=== PATIENT | female | born 1990 ===

== ENCOUNTER 2018-08-07 17:33 | Observation (INO) | payer OTHER ==
[2018-08-07] MEDS ORDERED: Sodium Chloride 0.9% 1,000 ML IV STA (17:54)
--- NOTE | 2018-08-07 17:57 | ED PDOC ---
HPI: General Adult Time Seen by Provider: 08/07/18 17:42 Chief Complaint (Nursing): Back Pain Chief Complaint (Provider): Back and abd pain History Per: Patient History/Exam Limitations: no limitations Onset/Duration Of Symptoms: Days (yesterday) Additional Complaint(s): Pt. back pain all over yesterday. Today pain continues and all over abd. Nausea, no vomit. 1 nonbloody diarrha. No weakness, numbness, tingles. No incontinence or constipation. No dysuria. Has chronic back pain, but states this is different. No new food or drinks. No etoh or drugs. No injury. Past Medical History Reviewed: Nursing Documentation, Vital Signs Vital Signs: Last Vital Signs Temp 98.2 F 08/07/18 17:37 Pulse 70 08/07/18 17:37 Resp 18 08/07/18 17:37 BP 114/66 08/07/18 17:37 Pulse Ox 99 08/07/18 17:37 - Medical History PMH: Back Problems Other PMH: shingles - Surgical History Surgical History: No Surg Hx - Family History Family History: States: Unknown Family Hx - Allergies Allergies/Adverse Reactions: Allergies Allergy/AdvReac Type Severity Reaction Status Date / Time No Known Allergies Allergy Verified 08/07/18 17:37 Review of Systems ROS Statement: Except As Marked, All Systems Reviewed And Found Negative Gastrointestinal: Positive for: Nausea, Abdominal Pain Musculoskeletal: Positive for: Back Pain Physical Exam - Reviewed Nursing Documentation Reviewed: Yes Vital Signs Reviewed: Yes - Physical Exam Appears: Positive for: Non-toxic, No Acute Distress Head Exam: Positive for: ATRAUMATIC, NORMAL INSPECTION, NORMOCEPHALIC Skin: Positive for: Normal Color, Warm, DRY Eye Exam: Positive for: EOMI, Normal appearance, PERRL ENT: Positive for: Normal ENT Inspection Neck: Positive for: Normal, Painless ROM Cardiovascular/Chest: Positive for: Regular Rate, Rhythm Respiratory: Positive for: CNT, Normal Breath Sounds Gastrointestinal/Abdominal: Positive for: Soft, Tenderness (diffuse) Back: Positive for: Other (diffuse mild) Extremity: Positive for: Normal ROM. Negative for: Tenderness Neurologic/Psych: Positive for: Alert, Oriented - Laboratory Results Result Diagrams: 08/07/18 18:37 08/07/18 18:37 Interpretation Of Abn Labs: 3.2 k, 12.6 wbc - ECG O2 Sat by Pulse Oximetry: 99 Pulse Ox Interpretation: Normal - CT Scan/US ct Other Rad Studies (CT/US): Read By Radiologist Other Rad Interpretation: gi varices, mild - Progress ED Course And Treament: 2138: Stable. Spoke with Dr. Shabazz. Will admit. Obs for intractable back pain. No incontinence, constipation. Disposition - Clinical Impression Clinical Impression: Back pain, Abdominal pain - Patient ED Disposition Is Patient to be Admitted: Yes Counseled Patient/Family Regarding: Studies Performed, Diagnosis - Disposition Disposition Time: 21:38 Condition: FAIR - Pt Status Changed To: Hospital Disposition Of: Observation - POA Present On Arrival: None
[2018-08-07 18:41] LABS: BASO % 0.4 % (0.0-2.0); EOS # 0.1 K/uL (0.0-0.7); EOS % 1.1 % (0.0-4.0); HEMOGLOBIN 12.8 g/dL (12.0-16.0); LYMPH # 1.4 K/uL (1.0-4.3); LYMPH % 11.4 % (20.0-40.0); MEAN CELL VOLUME 88.7 fl (81.0-99.0); MEAN CORPUSCULAR HEMOGLOBIN 29.9 pg (27.0-31.0); MEAN CORPUSCULAR HGB CONC 33.7 g/dL (33.0-37.0); MEAN PLATELET VOLUME 9.2 fl (7.2-11.7); MONO # 0.8 K/uL (0.0-0.8); MONO % 6.2 % (0.0-10.0); NEUT # 10.1 K/uL (1.8-7.0); NEUT % 80.9 % (50.0-75.0); RBC 4.27 Mil/uL (3.80-5.20); RED CELL DISTRIBUTION WIDTH 12.7 % (11.5-14.5); WHITE BLOOD COUNT 12.6 K/uL (4.8-10.8)
[2018-08-07 18:53] LABS: ALB/GLOB RATIO 1.3 (1.0-2.1); ALBUMIN 4.2 g/dL (3.5-5.0); ALT/SGPT 33 U/L (9-52); AST/SGOT 43 U/L (14-36); BLOOD UREA NITROGEN 18 mg/dl (7-17); GFR NON-AFRICAN AMERICAN > 60; LIPASE 23 U/L (23-300)
[2018-08-07] MEDS ORDERED: Iohexol 300 100 ML IJ ONE (19:04)
[2018-08-07] MEDS ORDERED: Sodium Chloride 0.9% 50 ML IV ONE (19:04)
[2018-08-07] MEDS ORDERED: Morphine 4 MG/ML VIAL IV ONE (19:52)
[2018-08-07] MEDS ORDERED: Lidocaine 5% Patch TD STA (19:52)
[2018-08-07] MEDS ORDERED: Potassium Chloride 20 mEq ER Tab PO STA (19:56)
[2018-08-07] MEDS ORDERED: Lidocaine 5% Patch TD ONE (19:57)
[2018-08-07] MEDS ORDERED: Morphine 4 MG/ML VIAL ONE (19:58)
[2018-08-07] MEDS ORDERED: diaZEpam 10 mg/2 ml Inj IVP STA (20:11)
[2018-08-07] MEDS ORDERED: Potassium Chloride 20 mEq ER Tab PO ONE (20:40)
--- NOTE | 2018-08-07 22:04 | CP.PCM.HP ---
History of Present Illness - History of Present Illness History of Present Illness: CC: back pain HPI: 28 YO Female with no sig PMHx presented to [facility] ED for back pain. Pt states that she has chronic back pain, but it worsened in the past two days, today becoming so severe that patient was not able to move and had to call the ambulance. Pt has tried OTC meds PO for pain without relief. Pain is rated as a 10/10 in intensity, located in the Mid-back, there is radiation of the pain to the upper abdomen above the umbilicus, pain is described as sharp, intense and persistent. Endorsing nausea with pain and 1x episode of loose BM (NB) earlier today. Not associated with any fevers or chills. 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 No hx of trauma (back), has had back pain on/off for the past three yrs. Pain improved with morphine in the ED. PMD: none PMHx: shingles in the past Surghx: denies SHx: denies ETOH, smoking and endorses marijuana use FHx: fibromylagia and bipolar disease (mother) Allergies: NKDA Meds: Aleve Present on Admission - Present on Admission Any Indicators Present on Admission: No Review of Systems - Constitutional Constitutional: absent: Chills, Fever - Cardiovascular Cardiovascular: absent: Chest Pain, Dyspnea, Palpitations - Respiratory Respiratory: absent: Cough, Dyspnea - Gastrointestinal Gastrointestinal: Abdominal Pain - Genitourinary Genitourinary: absent: Change in Urinary Stream, Dysuria, Flank Pain - Musculoskeletal Musculoskeletal: Back Pain. absent: Muscle Weakness - Neurological Neurological: absent: Dizziness, Headaches Past Patient History - Past Social History Smoking Status: Never Smoked Alcohol: None Drugs: Cannabis - PSYCHIATRIC Hx Substance Use: No Meds Allergies/Adverse Reactions: Allergies Allergy/AdvReac Type Severity Reaction Status Date / Time No Known Allergies Allergy Verified 08/07/18 17:37 Physical Exam - Constitutional Appears: Other (anxious and tearful ) - Eye Exam Eye Exam: Normal appearance - Respiratory Exam Respiratory Exam: Clear to Auscultation Bilateral, NORMAL BREATHING PATTERN. absent: Wheezes - Cardiovascular Exam Cardiovascular Exam: REGULAR RHYTHM, +S1, +S2 - GI/Abdominal Exam GI & Abdominal Exam: Normal Bowel Sounds, Soft. absent: Distended, Guarding, Tenderness - Extremities Exam Extremities exam: Positive for: normal inspection. Negative for: calf tenderness, pedal edema Additional comments: straight leg test neg b/l - Back Exam Back exam: paraspinal tenderness (thoracic area ), vertebral tenderness (mid-low thoracic area, approx T8-L2). absent: muscle spasm, rash noted - Neurological Exam Neurological exam: Alert, Oriented x3 - Psychiatric Exam Psychiatric exam: Anxious - Skin Skin Exam: Intact, Normal Color Results - Vital Signs Recent Vital Signs: Last Vital Signs Temp 98.2 F 08/07/18 17:37 Pulse 70 08/07/18 17:37 Resp 18 08/07/18 17:37 BP 114/66 08/07/18 17:37 Pulse Ox 99 08/07/18 21:38 - Labs Result Diagrams: 08/07/18 18:37 08/07/18 18:37 Labs: Laboratory Results - last 24 hr 08/07/18 08/07/18 18:37 18:37 WBC 12.6 H RBC 4.27 Hgb 12.8 Hct 37.9 MCV 88.7 MCH 29.9 MCHC 33.7 RDW 12.7 Plt Count 269 MPV 9.2 Neut % (Auto) 80.9 H Lymph % (Auto) 11.4 L Quay % (Auto) 6.2 Eos % (Auto) 1.1 Baso % (Auto) 0.4 Neut # (Auto) 10.1 H Lymph # (Auto) 1.4 Quay # (Auto) 0.8 Eos # (Auto) 0.1 Baso # (Auto) 0.0 Sodium 139 Potassium 3.2 L Chloride 101 Carbon Dioxide 27 Anion Gap 14 BUN 18 H Creatinine 0.6 L Est GFR ( Amer) > 60 Est GFR (Non-Af Amer) > 60 Random Glucose 105 Calcium 9.0 Total Bilirubin 0.8 AST 43 H ALT 33 Alkaline Phosphatase 78 Total Protein 7.3 Albumin 4.2 Globulin 3.1 Albumin/Globulin Ratio 1.3 Lipase 23 Assessment & Plan - Assessment and Plan (Free Text) Assessment: Assessment/Plan: 28 YO Female with no sig PMHx is admitted for intractable back pain and hypokalemia. Intractable back pain -acute on chronic -likely 2/2 to muscle strain vs disc disease -pain management, flexeril -CT abd and pelvis no acute findings -consider MRI of thoracic and lumbar in AM if pain persists Leukocytosis -likely 2/2 to acute pain and stress -afebrile -repeat AM lab Hypokalemia -replace prn -repeat labs in AM DVT prophlx -Lovenox SC
[2018-08-08 06:35] LABS: BASO % 0.3 % (0.0-2.0); EOS # 0.1 K/uL (0.0-0.7); EOS % 1.5 % (0.0-4.0); HEMOGLOBIN 11.8 g/dL (12.0-16.0); LYMPH # 1.6 K/uL (1.0-4.3); LYMPH % 22.8 % (20.0-40.0); MEAN CELL VOLUME 91.2 fl (81.0-99.0); MEAN CORPUSCULAR HEMOGLOBIN 30.1 pg (27.0-31.0); MEAN PLATELET VOLUME 9.2 fl (7.2-11.7); MONO # 0.5 K/uL (0.0-0.8); MONO % 7.7 % (0.0-10.0); NEUT # 4.8 K/uL (1.8-7.0); NEUT % 67.7 % (50.0-75.0); RBC 3.93 Mil/uL (3.80-5.20); RED CELL DISTRIBUTION WIDTH 12.6 % (11.5-14.5); WHITE BLOOD COUNT 7.2 K/uL (4.8-10.8)
[2018-08-08 07:11] LABS: BLOOD UREA NITROGEN 11 mg/dl (7-17); CALCIUM 8.3 mg/dL (8.4-10.2); GFR NON-AFRICAN AMERICAN > 60
[2018-08-08] MEDS ORDERED: Enoxaparin 40 mg Syringe SC SCH (09:00)
[2018-08-08] MEDS: Pantoprazole 40 mg EC Tab PO SCH (09:33)
[2018-08-08] MEDS: Lidocaine 5% Patch TD SCH (10:27)
--- NOTE | 2018-08-08 11:16 | CP.PCM.DIS ---
<Vincent Marie - Last Filed: 08/08/18 13:05> Provider - Provider Date of Admission: 08/07/18 21:38 Attending physician: Isidro Shabazz MD Consults: 08/08/18 05:45 Social Work Referral Routine Comment: Smokes Marijuana - Last use Wednesday (08/05/2018) Physician Instructions: Reason For Exam: Unhealthy Lifestyle Time Spent in preparation of Discharge (in minutes): 30 Hospital Course - Lab Results Lab Results: Most Recent Lab Values WBC 7.2 K/uL (4.8-10.8) 08/08/18 06:15 RBC 3.93 Mil/uL (3.80-5.20) 08/08/18 06:15 Hgb 11.8 g/dL (12.0-16.0) L 08/08/18 06:15 Hct 35.9 % (34.0-47.0) 08/08/18 06:15 MCV 91.2 fl (81.0-99.0) D 08/08/18 06:15 MCH 30.1 pg (27.0-31.0) 08/08/18 06:15 MCHC 33.0 g/dL (33.0-37.0) 08/08/18 06:15 RDW 12.6 % (11.5-14.5) 08/08/18 06:15 Plt Count 248 K/uL (130-400) 08/08/18 06:15 MPV 9.2 fl (7.2-11.7) 08/08/18 06:15 Neut % (Auto) 67.7 % (50.0-75.0) 08/08/18 06:15 Lymph % (Auto) 22.8 % (20.0-40.0) 08/08/18 06:15 Pine % (Auto) 7.7 % (0.0-10.0) 08/08/18 06:15 Eos % (Auto) 1.5 % (0.0-4.0) 08/08/18 06:15 Baso % (Auto) 0.3 % (0.0-2.0) 08/08/18 06:15 Neut # (Auto) 4.8 K/uL (1.8-7.0) 08/08/18 06:15 Lymph # (Auto) 1.6 K/uL (1.0-4.3) 08/08/18 06:15 Pine # (Auto) 0.5 K/uL (0.0-0.8) 08/08/18 06:15 Eos # (Auto) 0.1 K/uL (0.0-0.7) 08/08/18 06:15 Baso # (Auto) 0.0 K/uL (0.0-0.2) 08/08/18 06:15 Sodium 136 mmol/l (132-148) 08/08/18 06:15 Potassium 3.8 MMOL/L (3.6-5.0) 08/08/18 06:15 Chloride 107 mmol/L (98-107) 08/08/18 06:15 Carbon Dioxide 24 mmol/L (22-30) 08/08/18 06:15 Anion Gap 9 (10-20) L 08/08/18 06:15 BUN 11 mg/dl (7-17) 08/08/18 06:15 Creatinine 0.5 mg/dl (0.7-1.2) L 08/08/18 06:15 Est GFR ( Amer) > 60 08/08/18 06:15 Est GFR (Non-Af Amer) > 60 08/08/18 06:15 Random Glucose 94 mg/dL (65-105) 08/08/18 06:15 Calcium 8.3 mg/dL (8.4-10.2) L 08/08/18 06:15 Total Bilirubin 0.8 mg/dl (0.2-1.3) 08/07/18 18:37 AST 43 U/L (14-36) H 08/07/18 18:37 ALT 33 U/L (9-52) 08/07/18 18:37 Alkaline Phosphatase 78 U/L (38-126) 08/07/18 18:37 Total Protein 7.3 G/DL (6.3-8.2) 08/07/18 18:37 Albumin 4.2 g/dL (3.5-5.0) 08/07/18 18:37 Globulin 3.1 gm/dL (2.2-3.9) 08/07/18 18:37 Albumin/Globulin Ratio 1.3 (1.0-2.1) 08/07/18 18:37 Lipase 23 U/L (23-300) 08/07/18 18:37 - Hospital Course Hospital Course: 28 YO Female with no significant PMH is admitted for intractable back pain and hypokalemia. Patient received pain meds (Tylenol, Toradol and Lidoderm patchs) and muscle relaxent (Flexeril). Patient had CT abdomen and pelvis didn't show any bone anomalies. Patient seen and evaluated by PT. During her hospital course; Patient didn't have any acute events or distress. Patient discharged home today. Will follow up with outpatient PT. Patient will follow up with outpatient [facility]. Patient to apply on Winter care. Assessment: 28 Y/O Female patient with no significant PMH is admitted for intractable back pain and hypokalemia. Plan: Intractable back pain -Acute on chronic -Likely 2/2 to muscle strain. -C/W Pain management (Tylenol, Naproxen and Lidoderm patch), flexeril for muscle relaxation -CT abd and pelvis no acute findings -PT evaluation: Discharge-Not a candidate for skilled PT services. -F/U with outpatient neighborhood clinic. -Referral to F/U with outpatient PT. -F/U with winter office in the Main floor of [facility] to apply for winter care. Hypokalemia -Normalized -Last K: 3.8 Discharge Exam - Head Exam Head Exam: ATRAUMATIC, NORMAL INSPECTION, NORMOCEPHALIC - Eye Exam Eye Exam: EOMI, Normal appearance, PERRL Pupil Exam: NORMAL ACCOMODATION, PERRL - ENT Exam ENT Exam: Mucous Membranes Moist - Neck Exam Neck exam: Full Rom, Normal Inspection - Respiratory Exam Respiratory Exam: Clear to PA & Lateral, NORMAL BREATHING PATTERN, UNREMARKABLE - Cardiovascular Exam Cardiovascular Exam: REGULAR RHYTHM, +S1, +S2 - GI/Abdominal Exam GI & Abdominal Exam: Normal Bowel Sounds, Unremarkable - Back Exam Back exam: NORMAL INSPECTION Additional comments: Lower thoracic paraspinal mild tenderness to palpation. - Neurological Exam Neurological exam: Alert, Oriented x3 Additional comments: Sensations (fine and protective) are intact b/l. Motor power intact 5/5 to all groups. Straight leg raise up test negative b/l. - Psychiatric Exam Psychiatric exam: Normal Affect, Normal Mood - Skin Skin Exam: Dry, Intact, Normal Color, Warm Discharge Plan - Discharge Medications Prescriptions: Cyclobenzaprine [Flexeril] 5 mg PO Q8 10 Days #30 tab Lidocaine 5% [Lidoderm] 2 ea TD DAILY 10 Days #10 patch Naproxen [Naprosyn] 500 mg PO BID 10 Days #20 tablet Pantoprazole [Protonix EC Tab] 40 mg PO DAILY 14 Days #14 ect - Follow Up Plan Condition: FAIR Disposition: HOME/ ROUTINE Instructions: Acute Abdominal Pain (DC), Back Pain (GEN) Additional Instructions: Apply for [facility]: Office is in the main floor of [facility] Call and make an appointment with the [facility]-Phone no: [phone] follow up with primary MD 1 week Referrals: [facility] [Outside] <JamesConnieMindygreta Clarke - Last Filed: 08/08/18 18:14> Provider - Provider Date of Admission: 08/07/18 21:38 Attending physician: Isidro Shabazz MD Consults: 08/08/18 05:45 Social Work Referral Routine Comment: Smokes Marijuana - Last use Wednesday (08/05/2018) Physician Instructions: Reason For Exam: Unhealthy Lifestyle Hospital Course - Lab Results Lab Results: Most Recent Lab Values WBC 7.2 K/uL (4.8-10.8) 08/08/18 06:15 RBC 3.93 Mil/uL (3.80-5.20) 08/08/18 06:15 Hgb 11.8 g/dL (12.0-16.0) L 08/08/18 06:15 Hct 35.9 % (34.0-47.0) 08/08/18 06:15 MCV 91.2 fl (81.0-99.0) D 08/08/18 06:15 MCH 30.1 pg (27.0-31.0) 08/08/18 06:15 MCHC 33.0 g/dL (33.0-37.0) 08/08/18 06:15 RDW 12.6 % (11.5-14.5) 08/08/18 06:15 Plt Count 248 K/uL (130-400) 08/08/18 06:15 MPV 9.2 fl (7.2-11.7) 08/08/18 06:15 Neut % (Auto) 67.7 % (50.0-75.0) 08/08/18 06:15 Lymph % (Auto) 22.8 % (20.0-40.0) 08/08/18 06:15 Pine % (Auto) 7.7 % (0.0-10.0) 08/08/18 06:15 Eos % (Auto) 1.5 % (0.0-4.0) 08/08/18 06:15 Baso % (Auto) 0.3 % (0.0-2.0) 08/08/18 06:15 Neut # (Auto) 4.8 K/uL (1.8-7.0) 08/08/18 06:15 Lymph # (Auto) 1.6 K/uL (1.0-4.3) 08/08/18 06:15 Pine # (Auto) 0.5 K/uL (0.0-0.8) 08/08/18 06:15 Eos # (Auto) 0.1 K/uL (0.0-0.7) 08/08/18 06:15 Baso # (Auto) 0.0 K/uL (0.0-0.2) 08/08/18 06:15 Sodium 136 mmol/l (132-148) 08/08/18 06:15 Potassium 3.8 MMOL/L (3.6-5.0) 08/08/18 06:15 Chloride 107 mmol/L (98-107) 08/08/18 06:15 Carbon Dioxide 24 mmol/L (22-30) 08/08/18 06:15 Anion Gap 9 (10-20) L 08/08/18 06:15 BUN 11 mg/dl (7-17) 08/08/18 06:15 Creatinine 0.5 mg/dl (0.7-1.2) L 08/08/18 06:15 Est GFR ( Amer) > 60 08/08/18 06:15 Est GFR (Non-Af Amer) > 60 08/08/18 06:15 Random Glucose 94 mg/dL (65-105) 08/08/18 06:15 Calcium 8.3 mg/dL (8.4-10.2) L 08/08/18 06:15 Total Bilirubin 0.8 mg/dl (0.2-1.3) 08/07/18 18:37 AST 43 U/L (14-36) H 08/07/18 18:37 ALT 33 U/L (9-52) 08/07/18 18:37 Alkaline Phosphatase 78 U/L (38-126) 08/07/18 18:37 Total Protein 7.3 G/DL (6.3-8.2) 08/07/18 18:37 Albumin 4.2 g/dL (3.5-5.0) 08/07/18 18:37 Globulin 3.1 gm/dL (2.2-3.9) 08/07/18 18:37 Albumin/Globulin Ratio 1.3 (1.0-2.1) 08/07/18 18:37 Lipase 23 U/L (23-300) 08/07/18 18:37 Attending/Attestation - Attestation I have personally seen and examined this patient.: Yes I have fully participated in the care of the patient.: Yes I have reviewed all pertinent clinical information, including history, physical exam and plan: Yes Notes (Text): Back Pain , mid and lower back pain likely musculoskeletal pain improved -Pt had no neuro deficit , no saddle anesthesia, no urinary retention nor incontinence, negative straight leg raising - her pain improved with pain meds, muscle relaxant and with the dose of Valium and Decadron. -PT consulted- rec Outpt Physical therapy. - plan to d/c pt home and ff up as outpt in the clinic for further eval and mgt of back pain and HYGIENE COORDINATOR appt to ff up on small adnexal cyst. Discharge cancelled after Radiologist called informing us of discordant CT of the abdomen reading compared to the night Radiologist reading. - noted was " extensive varicesb in distal esophagus, and poss Thrombosis of the IVC and pelvic venous system". Discussed case with Dr Holbrook - Doppler US of the IVC and LE to r/o DVT. - pt has no calf tenderness - not on contraceptive pills - FH : her uncle was recently dx to have DVT and is in [place]
--- NOTE | 2018-08-08 14:07 | CT ---
Date of service: 08/07/2018 PROCEDURE: CT Abdomen and Pelvis with contrast HISTORY: pain COMPARISON: None. TECHNIQUE: Following the intravenous administration of iodinated contrast material, a CT examination of the abdomen and pelvis performed from the domes of the diaphragms to the symphysis pubis with reformatted datasets provided in axial, sagittal and coronal planes. Oral contrast was not administered as per referring physician request. Coronal and sagittal reformats were generated. Contrast dose: Omnipaque 300, 90 cc. Radiation dose: Total exam DLP = 546.39 mGy-cm. This CT exam was performed using one or more of the following dose reduction techniques: Automated exposure control, adjustment of the mA and/or kV according to patient size, and/or use of iterative reconstruction technique. FINDINGS: LOWER THORAX: Unremarkable. LIVER: Nonspecific periportal edema identified. No gross lesion or ductal dilatation. GALLBLADDER AND BILE DUCTS: Unremarkable. PANCREAS: Unremarkable. No gross lesion or ductal dilatation. SPLEEN: Unremarkable. ADRENALS: Unremarkable. No mass. KIDNEYS AND URETERS: Unremarkable. No hydronephrosis. No solid mass. VASCULATURE: Nonaneurysmal abdominal aortic calcific atherosclerotic changes are identified. There is azygos continuation of the inferior vena cava and the chaz azygous vein in the chest appears prominent. Further, extensive varices are identified at the distal esophagus and medial bilateral renal fossae without cirrhotic hepatic pattern appreciated. Further, although there is good enhancement of the splenic and portal venous system, there is little or no enhancement identified in the inferior vena cava including the iliac pelvic system in the bilateral common femoral veins. This raises the question of potential thrombosis of the inferior vena cava and pelvic venous system with azygos and chaz azygous continuation. BOWEL: Stomach is distended with retained fluid moderately. No bowel obstruction is identified. No definitive mural thickening is evident. Limited mesenteric hazy density seen in the pelvis bilaterally, inferiorly which is of uncertain origin. The lack of oral contrast limits evaluation of the bowel but no gross mural thickening is evident at this time. APPENDIX: Normal appendix. PERITONEUM: Nonspecific hazy peritoneal fatty glass changes are seen in the bilateral inferior pelvis. No ascites or free intra peritoneal gas collection. LYMPH NODES: No significant lymphadenopathy. BLADDER: Unremarkable. REPRODUCTIVE: 2.1 cm cyst left adnexal compartment. BONES: No acute fracture. OTHER FINDINGS: None. IMPRESSION: 1. 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 Multiple varices are identified in the upper abdomen including bilateral medial perirenal spaces and left side of the esophagus. Follow-up ultrasonography of the inferior vena cava and bilateral lower extremities is advised. 2. Nonspecific ground-glass changes in the inferior mesenteric bilaterally of uncertain origin. No gross mural thickening in the local bowel segments. No ascites or free air. 3. 2.1 cm left adnexal cyst. Discordant preliminary report from [facility] (inferior vena cava, pelvic venous system and bilateral lower extremity venous systems). Findings reviewed and discussed with AIDEN Pal with written down and read back verification 08/08/2018 2 o'clock p.m..
--- NOTE | 2018-08-08 18:47 | US ---
Date of service: 08/08/2018 PROCEDURE: Bilateral lower extremity venous duplex Doppler. HISTORY: r/o DVT COMPARISON: None available. TECHNIQUE: Bilateral common femoral, superficial femoral, popliteal and posterior tibial veins were evaluated. Flow was assessed with color Doppler, compressibility, assessment of phasic flow and augmentation response. FINDINGS: COMMON FEMORAL VEIN: Right CFV: Unremarkable. Left CFV: Unremarkable. SUPERFICIAL FEMORAL VEIN: Right SFV: Unremarkable. Left SFV: Unremarkable. POPLITEAL VEIN: Right Popliteal: Unremarkable. Left Popliteal: Unremarkable. POSTERIOR TIBIAL VEIN: Right PTV: Unremarkable. Left PTV: Unremarkable. OTHER FINDINGS: None. IMPRESSION: No evidence of deep venous thrombosis.
--- NOTE | 2018-08-09 00:57 | CP.PCM.PCO ---
Physician Communication Note - Physician Communication Note Physician Communication Note: US report reviewed.
[2018-08-09] MEDS: Enoxaparin 80 mg Syringe SC SCH ×2 (01:00→14:08)
[2018-08-09] MEDS: Lidocaine 5% Patch TD SCH (09:01)
[2018-08-09] MEDS: Pantoprazole 40 mg EC Tab PO SCH (09:02)
[2018-08-09 09:39] LABS: INR 1.1; PROTHROMBIN TIME 12.2 Seconds (9.8-13.1)
[2018-08-09 09:42] LABS: PARTIAL THROMBOPLASTIN TIME 38.2 Seconds (25.6-37.1)
--- NOTE | 2018-08-09 10:37 | CP.PCM.PN ---
Subjective - Date & Time of Evaluation Date of Evaluation: 08/09/18 Time of Evaluation: 10:09 - Subjective Subjective: 28 Y/O Female patient seen and evaluated at the bedside for back pain. Patient was sleeping comfortably in her bed and NAD. Patient states that She didn't have overnight pain but she had some back soreness. She denies any overnight acute events. She denies any overnight F/N/V/C/CP or SOB. Objective - Vital Signs/Intake and Output Vital Signs (last 24 hours): Temp Pulse Resp BP Pulse Ox 97.8 F 68 20 101/66 97 08/09/18 08:21 08/09/18 08:21 08/09/18 08:21 08/09/18 08:21 08/09/18 08:21 - Medications Medications: Current Medications Acetaminophen (Tylenol 325mg Tab) 650 mg PO Q6 PRN PRN Reason: Pain, Mild (1-3) Last Admin: 08/08/18 19:46 Dose: 650 mg Cyclobenzaprine HCl (Flexeril) 5 mg PO Q8 [facility]OLY Last Admin: 08/09/18 09:01 Dose: 5 mg Enoxaparin Sodium (Lovenox) 70 mg SC Q12H YOLY; Protocol Last Admin: 08/09/18 01:00 Dose: 70 mg Ketorolac Tromethamine (Toradol) 15 mg IVP Q6 PRN PRN Reason: Pain, moderate (4-7) Last Admin: 08/08/18 21:34 Dose: 15 mg Lidocaine (Lidoderm) 2 ea TD DAILY [facility] Last Admin: 08/09/18 09:01 Dose: 2 ea Ondansetron HCl (Zofran Tab) 4 mg PO Q6 PRN PRN Reason: Nausea/Vomiting Pantoprazole Sodium (Protonix Ec Tab) 40 mg PO DAILY [facility] Last Admin: 08/09/18 09:02 Dose: 40 mg - Labs Labs: 08/08/18 06:15 08/08/18 06:15 PT 12.2 Seconds (9.8-13.1) 08/09/18 09:20 INR 1.1 08/09/18 09:20 APTT 38.2 Seconds (25.6-37.1) H 08/09/18 09:20 - Constitutional Appears: Non-toxic, No Acute Distress - Head Exam Head Exam: ATRAUMATIC, NORMOCEPHALIC - Eye Exam Eye Exam: EOMI, Normal appearance, PERRL Pupil Exam: NORMAL ACCOMODATION, PERRL - ENT Exam ENT Exam: Mucous Membranes Moist, Normal Exam - Neck Exam Neck Exam: Full ROM, Normal Inspection - Respiratory Exam Respiratory Exam: Clear to Ausculation Bilateral, NORMAL BREATHING PATTERN - Cardiovascular Exam Cardiovascular Exam: REGULAR RHYTHM, +S1, +S2 - GI/Abdominal Exam GI & Abdominal Exam: Soft, Normal Bowel Sounds - Neurological Exam Neurological Exam: Alert, Awake, Oriented x3 Neuro motor strength exam: Left Upper Extremity: 5, Right Upper Extremity: 5, Le ft Lower Extremity: 5, Right Lower Extremity: 5 Additional comments: straight leg test neg b/l - Psychiatric Exam Psychiatric exam: Normal Affect, Normal Mood - Skin Skin Exam: Dry, Intact, Normal Color, Warm Assessment and Plan - Assessment and Plan (Free Text) Assessment: 28 Y/O Female with no sig PMHx is admitted for intractable back pain probably 2ry to IVC thrombosis. Plan: Intractable back pain probably 2ry to IVC thrombosis -Acute on chronic -C/W pain management, flexeril -CT abd and pelvis Initially IVC, iliac, azygos and hemiazygos thrombosis with left lower esophagus varices, left adenxal cyst. Advised to do U/S IVC, Iliacs and B/l LE. -Aortic U/S: No flow seen from proximal IVC suspicious for thrombosis, Consider further imaging, Mid IVC is not visualized. -B/L LE Venous duplex: No evidence of DVT. -Ordered IVC venography. -Patient Referred to IR for potential thrombolysis -Lovenox 70 mg Q12. Leukocytosis -likely 2/2 to acute pain and stress -afebrile -WBCs: Hypokalemia -replace prn -repeat labs in AM DVT prophlx -Lovenox SC
[2018-08-09] MEDS ORDERED: Iodixanol 320 MG/ML 100 ML BOTTLE IV ONE (13:03)
[2018-08-09] MEDS ORDERED: Lidocaine 1% Inj (20ml) ONE (13:07)
--- NOTE | 2018-08-09 13:40 | PCM.SURG1 ---
Surgeon's Initial Post Op Note - Surgeon's Notes Surgeon: Julio C Castañeda MD Cost Accounting Manager: NONE Type of Anesthesia: Local Pre-Operative Diagnosis: IVC thrombosis Operative Findings: IVC venogram via right femoral vein approach. Right and left common iliac veins are patent. The IVC is not identified. Flow is via hemiazygous vein. Chronic occlusion of IVC. CT reviewed and showed the suprahepatic IVC is patent. The IVC segment from the liver to the renal veins is absent. Flow of renal veins is via the hemiazygous. Post-Operative Diagnosis: IVC thrombosis Operation Performed: IVC venogram Specimen/Specimens Removed: IVC thrombosis Estimated Blood Loss: EBL {In ML}: 2 Blood Products Given: N/A Drains Used: No Drains Post-Op Condition: Fair Date of Surgery/Procedure: 08/09/18 Time of Surgery/Procedure: 13:40
[2018-08-09 13:45] VITALS: RESP 18; O2SAT 99
--- NOTE | 2018-08-09 15:41 | CP.PCM.DIS ---
Provider - Provider Date of Admission: 08/07/18 21:38 Attending physician: Isidro Shabazz MD Consults: 08/08/18 05:45 Social Work Referral Routine Comment: Smokes Marijuana - Last use Wednesday (08/05/2018) Physician Instructions: Reason For Exam: Unhealthy Lifestyle 08/09/18 05:48 Hematology Oncology Consult Routine Comment: Consulting Provider: Cody Camacho Consulting Physician: Cody Camacho Reason for Consult: Inferior Vena cava Thrombosis 08/09/18 08:19 Physician Consult Routine Comment: evaluate for potential IVC thrombolysis, see imagi Consulting Provider: Maikol Ruiz Consulting Physician: Maikol Ruiz Reason for Consult: evaluate for potential IVC thrombolysis Time Spent in preparation of Discharge (in minutes): 30 Diagnosis - Discharge Diagnosis (1) Inferior vena caval thrombosis Status: Acute Hospital Course - Lab Results Lab Results: Most Recent Lab Values WBC 7.2 K/uL (4.8-10.8) 08/08/18 06:15 RBC 3.93 Mil/uL (3.80-5.20) 08/08/18 06:15 Hgb 11.8 g/dL (12.0-16.0) L 08/08/18 06:15 Hct 35.9 % (34.0-47.0) 08/08/18 06:15 MCV 91.2 fl (81.0-99.0) D 08/08/18 06:15 MCH 30.1 pg (27.0-31.0) 08/08/18 06:15 MCHC 33.0 g/dL (33.0-37.0) 08/08/18 06:15 RDW 12.6 % (11.5-14.5) 08/08/18 06:15 Plt Count 248 K/uL (130-400) 08/08/18 06:15 MPV 9.2 fl (7.2-11.7) 08/08/18 06:15 Neut % (Auto) 67.7 % (50.0-75.0) 08/08/18 06:15 Lymph % (Auto) 22.8 % (20.0-40.0) 08/08/18 06:15 [place] % (Auto) 7.7 % (0.0-10.0) 08/08/18 06:15 Eos % (Auto) 1.5 % (0.0-4.0) 08/08/18 06:15 Baso % (Auto) 0.3 % (0.0-2.0) 08/08/18 06:15 Neut # (Auto) 4.8 K/uL (1.8-7.0) 08/08/18 06:15 Lymph # (Auto) 1.6 K/uL (1.0-4.3) 08/08/18 06:15 [place] # (Auto) 0.5 K/uL (0.0-0.8) 08/08/18 06:15 Eos # (Auto) 0.1 K/uL (0.0-0.7) 08/08/18 06:15 Baso # (Auto) 0.0 K/uL (0.0-0.2) 08/08/18 06:15 PT 12.2 Seconds (9.8-13.1) 08/09/18 09:20 INR 1.1 08/09/18 09:20 APTT 38.2 Seconds (25.6-37.1) H 08/09/18 09:20 Sodium 136 mmol/l (132-148) 08/08/18 06:15 Potassium 3.8 MMOL/L (3.6-5.0) 08/08/18 06:15 Chloride 107 mmol/L (98-107) 08/08/18 06:15 Carbon Dioxide 24 mmol/L (22-30) 08/08/18 06:15 Anion Gap 9 (10-20) L 08/08/18 06:15 BUN 11 mg/dl (7-17) 08/08/18 06:15 Creatinine 0.5 mg/dl (0.7-1.2) L 08/08/18 06:15 Est GFR ( Amer) > 60 08/08/18 06:15 Est GFR (Non-Af Amer) > 60 08/08/18 06:15 Random Glucose 94 mg/dL (65-105) 08/08/18 06:15 Calcium 8.3 mg/dL (8.4-10.2) L 08/08/18 06:15 Total Bilirubin 0.8 mg/dl (0.2-1.3) 08/07/18 18:37 AST 43 U/L (14-36) H 08/07/18 18:37 ALT 33 U/L (9-52) 08/07/18 18:37 Alkaline Phosphatase 78 U/L (38-126) 08/07/18 18:37 Total Protein 7.3 G/DL (6.3-8.2) 08/07/18 18:37 Albumin 4.2 g/dL (3.5-5.0) 08/07/18 18:37 Globulin 3.1 gm/dL (2.2-3.9) 08/07/18 18:37 Albumin/Globulin Ratio 1.3 (1.0-2.1) 08/07/18 18:37 Lipase 23 U/L (23-300) 08/07/18 18:37 - Hospital Course Hospital Course: 28 Y/O Female with no sig PMHx is admitted for 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 Patient received pain meds and lovenox SC in the hospital, Venography done for the patient confirming IVC thrombosis. During her hospital stay, Patient didn't have any acute events. Being chronic in nature, patient will be discharged on anticoagulant (Eliquis). Patient to follow up with the primary clinic at [facility]. 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 Plan: Intractable back pain probably 2ry to IVC thrombosis -Acute on chronic -C/W pain management, Flexril -CT abd and pelvis Initially IVC, iliac, azygos and hemiazygos thrombosis with left lower esophagus varices, left adenxal cyst. Advised to do U/S IVC, Iliacs and B/l LE. -Aortic U/S: No flow seen from proximal IVC suspicious for thrombosis, Consider further imaging, Mid IVC is not visualized. -B/L LE Venous duplex: No evidence of DVT. -IVC venography; Right and left common iliac veins are patent. The IVC is not identified. Flow is via hemiazygous vein. Chronic occlusion of IVC. CT reviewed and showed the suprahepatic IVC is patent. The IVC segment from the liver to the renal veins is absent. Flow of renal veins is via the hemiazygous.. -IR consulted; Reccs appreciated -Eliquis 10 mg PO BID for 7 days. Then 5 mg BID for the rest of the month (anticoagulation will continue for 3-6 month) -Patient to be referred to hem/Onc for further anticoagulation recommendations. -Patient scheduled for appointment at [facility] (08/22/2018 at 10:30 am). - Patient to apply for lisandro care at the main floor of [facility] Discharge Exam - Head Exam Head Exam: ATRAUMATIC, NORMOCEPHALIC - Eye Exam Eye Exam: EOMI, Normal appearance, PERRL Pupil Exam: NORMAL ACCOMODATION, PERRL - ENT Exam ENT Exam: Mucous Membranes Moist, Normal Exam - Neck Exam Neck exam: Normal Inspection - Respiratory Exam Respiratory Exam: Clear to PA & Lateral, NORMAL BREATHING PATTERN, UNREMARKABLE - Cardiovascular Exam Cardiovascular Exam: REGULAR RHYTHM - GI/Abdominal Exam GI & Abdominal Exam: Normal Bowel Sounds, Unremarkable - Extremities Exam Extremities exam: full ROM, normal capillary refill - Back Exam Back exam: NORMAL INSPECTION - Psychiatric Exam Psychiatric exam: Normal Affect, Normal Mood - Skin Skin Exam: Dry, Intact, Normal Color, Warm Discharge Plan - Discharge Medications Prescriptions: Cyclobenzaprine [Flexeril] 5 mg PO Q8 10 Days #30 tab Lidocaine 5% [Lidoderm] 2 ea TD DAILY 10 Days #10 patch Naproxen [Naprosyn] 500 mg PO BID 10 Days #20 tablet Pantoprazole [Protonix EC Tab] 40 mg PO DAILY 14 Days #14 ect - Follow Up Plan Condition: FAIR Disposition: HOME/ ROUTINE Instructions: Acute Abdominal Pain (DC), Back Pain (GEN), Pulmonary Embolism (DC), Pulmonary Embolism (GEN), Deep Venous Thrombosis (DC), Deep Venous Thrombosis (GEN) Additional Instructions: Apply for lisandro care: Office is in the main floor of [facility] Call and make an appointment with the [facility]-Phone no: [phone] follow up with primary MD 1 week Referrals: [facility] [Outside]
[2018-08-09 16:15] VITALS: BP 94/60; PULSE 73; TEMP 97.6
--- NOTE | 2018-08-10 10:45 | US ---
Date of service: 08/08/2018 PROCEDURE: Abdominal aorta ultrasound HISTORY: r/o thrombosis COMPARISON: 08/07/2018 CT abdomen and pelvis. Summary of findings on the comparison examination: Thrombosis of the inferior vena cava and pelvic iliac venous system. TECHNIQUE: Transabdominal approach. Real-time technique with 2D, duplex and color Doppler FINDINGS: Patent aorta and iliac vessels. Absence of flow in the proximal inferior vena cava. Minimal flow in the distal IVC. Mid abdominal IVC not well visualized.. IMPRESSION: Confirmation of occlusive disease in the IVC is visualized. Concordant findings (preliminary report) provided by [facility].
--- NOTE | 2018-08-11 13:51 | VASCULAR ---
PROCEDURE: Date of procedure: 08/07/2018 Medications: 5 cubic centimeters 2 percent lidocaine PROCEDURE: inferior vena cavagram RADIATION:40.42 mGy Fluoroscopy time: 81.2 seconds HISTORY: IVC occlusion TECHNIQUE: Following informed consent the procedure time-out, patient placed supine on the table. The right groin was prepped and draped in the usual sterile fashion. Under ultrasound guidance, the right common femoral vein was accessed with micropuncture technique the direct ultrasound guidance. An ultrasound image documenting ultrasound guidance for needle access and needle position within the vein was probably archived. Overlapping DSA images of venogram was performed. The angled catheter was advanced through a 6 [place] vascular sheath and IVC venogram and chaz azygous venogram performed. Findings: Right and left common iliac veins are patent. The infrarenal IVC is patent. Suprarenal IVC is non-existent. The chaz azygous and azygous vein are prominent. Lumbar veins also prominent. IMPRESSION: The the left common iliac veins are patent without thrombus. The infrarenal IVC is patent without thrombus. The suprarenal IVC is not non-existent. Large collateral veins are identified. 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 Contrast CT scan performed previously showed the hepatic segment of the IVC with drain step attic veins is unremarkable. The renal segment extending from hepatic segment to the renal veins is absent.
[2018-08-11 21:57] LABS: CARDIOLIPIN AB (IGA) <11 APL (<=11); CARDIOLIPIN AB (IGG) <14 GPL (<=14)
[2018-08-12 04:35] LABS: B2 GLYCOPROTEIN I AB(IGA) <9 SAU (<=20); B2 GLYCOPROTEIN I AB(IGG) <9 SGU (<=20); B2 GLYCOPROTEIN I AB(IGM) <9 SMU (<=20); CARDIOLIPIN AB (IGM) <12 MPL (<=12)
== END 2018-08-09 18:15 | disposition home or self-care (01) ==
LOC: H.ER 17:33 → H.ERHOLD 21:38 → H.MEDSURG1 23:57
PROVIDERS: ADMIT Internal Medicine; ATTEND Internal Medicine
DX: I82.529 Chronic embolism and thrombosis of unspecified iliac vein (principal); E87.6 Hypokalemia; D72.828 Other elevated white blood cell count; G89.29 Other chronic pain; M54.5 Low back pain; M54.16 Radiculopathy, lumbar region
CPT/HCPCS: 36415; 74177; 75825; 80048; 80053; 81025; 81240; 81241; 83690; 85025; 85300; 85303; 85305; 85610; 85730; 86146; 86147; 86148; 93970; 93978; 96361; 96372; 96374; 96375; 96376; 97116; 97161; 97530; 99285; C1725; C1769; C1894; G0378; G8978; G8979; G8980; J1100; J1650; J1885; J2270; J2405; J7030; Q9967

== ENCOUNTER 2018-09-11 12:38 | Emergency (ER) | payer SELFPAY ==
[2018-09-11 12:57] VITALS: RESP 18
--- NOTE | 2018-09-11 14:55 | ED PDOC ---
Lower Extremity Pain/Injury Time Seen by Provider: 09/11/18 13:22 Chief Complaint (Nursing): Lower Extremity Problem/Injury Chief Complaint (Provider): Lower Extremity Problem/Injury History Per: Patient History/Exam Limitations: no limitations Onset/Duration Of Symptoms: Days (x1 day) Current Symptoms Are (Timing): Still Present Additional Complaint(s): Candelaria Campos is a 28 year old female with a past medical history of back problems, who presents to the emergency department complaining of severe swelling and pain to the right leg, onset x1 day ago. Patient reports that she was previously diagnosed with blood clots, which were located in the abdomen. She is currently taking x2 doses of Eliquis per day for the last several weeks, but ran out of her prescription on Wednesday. Her last dose was Wednesday morning because she is unable to refill her prescription because of insurance issues. Patient denies chest pain, shortness of breath, or weakness. PMD: Dr. Vaughn Past Medical History Reviewed: Historical Data, Nursing Documentation, Vital Signs Vital Signs: Last Vital Signs Temp 98.2 F 09/11/18 12:53 Pulse 82 09/11/18 12:53 Resp 18 09/11/18 12:53 BP 102/69 09/11/18 12:59 Pulse Ox 98 09/11/18 12:53 - Medical History PMH: Back Problems Denies: Chronic Kidney Disease - Surgical History Surgical History: No Surg Hx - Family History Family History: States: Unknown Family Hx - Social History Drugs: Cannabis - Home Medications Home Medications: Ambulatory Orders Medication Instructions Recorded Naproxen [Naprosyn] 500 mg PO BID 10 Days #20 tablet 08/08/18 RX: Cyclobenzaprine [Flexeril] 5 mg PO Q8 10 Days #30 tab 08/08/18 RX: Lidocaine 5% [Lidoderm] 2 ea TD DAILY 10 Days #10 patch 08/08/18 RX: Pantoprazole [Protonix EC Tab] 40 mg PO DAILY 14 Days #14 ect 08/08/18 Apixaban [Eliquis] 5 mg PO BID #60 tab.ds.pk 08/09/18 Apixaban [Eliquis] 10 mg PO BID #14 tab 08/09/18 RX: Apixaban [Eliquis] 10 mg PO BID 7 Days tab 09/11/18 - Allergies Allergies/Adverse Reactions: Allergies Allergy/AdvReac Type Severity Reaction Status Date / Time No Known Allergies Allergy Verified 09/11/18 12:57 Review of Systems ROS Statement: Except As Marked, All Systems Reviewed And Found Negative Cardiovascular: Negative for: Chest Pain Respiratory: Negative for: Shortness of Breath Musculoskeletal: Positive for: Leg Pain (and swelling to the right leg) Neurological: Negative for: Weakness Physical Exam - Reviewed Nursing Documentation Reviewed: Yes Vital Signs Reviewed: Yes - Physical Exam Appears: Positive for: Non-toxic, No Acute Distress Head Exam: Positive for: ATRAUMATIC, NORMOCEPHALIC Skin: Positive for: Normal Color, Warm, Dry Cardiovascular/Chest: Positive for: Regular Rate, Rhythm. Negative for: Murmur Respiratory: Positive for: Normal Breath Sounds. Negative for: Respiratory Distress Pulses-Dorsalis Pedis (L): 2+ Pulses-Dorsalis Pedis (R): 2+ Pulses-Post. Tibialis (L): 2+ Pulses-Post. Tibialis (R): 2+ Extremity: Positive for: Calf Tenderness (TTP on calf squeeze), Swelling (grossly swelling to the right leg from the hip down) - Laboratory Results Result Diagrams: 09/11/18 15:20 09/11/18 15:20 - ECG O2 Sat by Pulse Oximetry: 98 (RA) Pulse Ox Interpretation: Normal Medical Decision Making Medical Decision Making: Time: 1347 A/P: Work up for lower extremity DVT, no indications of PE at this time. Will get an US, labs, ekg. Patient will be placed on monitor and will be reevaluated. --EKG --BMP --CBC with differential --PTT --PT --Chest xray 2 views --Toradol 30 mg IVP --Lower extremity US Time: 1509 Chest xray FINDINGS: LUNGS: No active pulmonary disease. PLEURA: No significant pleural effusion identified. No pneumothorax apparent. CARDIOVASCULAR: No aortic atherosclerotic calcification present. Normal cardiac size. No pulmonary vascular congestion. OSSEOUS STRUCTURES: No significant abnormalities. VISUALIZED UPPER ABDOMEN: Normal. OTHER FINDINGS: None. IMPRESSION: No active disease. Time: 1809 --Discussed case with hospitalist and family practice resident. --Patient has a current Rx for ELIQUIS --DVT is not present in the legs, therefore most likely same DVT that was in the IVC previously seen. --Family practice resident discussed follow up with patient, as well as helped arrange coupons for medications. --Patient got a dose of ELIQUIS and was discharged home. Time: 1833 --Patient will be given 10 mg of ElIQUIS and a Rx for a starter pack Scribe Attestation: Documented by Scott Potts, acting as a scribe for Ashley Van MD. Provider Scribe Attestation: All medical record entries made by the Scribe were at my direction and personally dictated by me. I have reviewed the chart and agree that the record accurately reflects my personal performance of the history, physical exam, medical decision making, and the department course for this patient. I have also personally directed, reviewed, and agree with the discharge instructions and disposition. Disposition - Clinical Impression Clinical Impression: Inferior vena caval thrombosis - Disposition Referrals: [facility] [Outside] Disposition Time: 18:10 Condition: STABLE Additional Instructions: Follow up in the outpatient clinic tomorrow at 8am. Use coupon that was provided to you for Eloquis. Failure to take this medication can result in permanent disability or . Return to the emergency department if you develop chest pain, trouble breathing, weakness, or other new symptoms. Prescriptions: RX: Apixaban [Eliquis] 10 mg PO BID 7 Days tab Instructions: Going Home on Blood Thinners Forms: [employer] (Georgian) Print Language: SYRIAN
--- NOTE | 2018-09-11 15:12 | RAD ---
Date of service: 09/11/2018 HISTORY: cough COMPARISON: No prior. TECHNIQUE: Chest PA and lateral FINDINGS: LUNGS: No active pulmonary disease. PLEURA: No significant pleural effusion identified. No pneumothorax apparent. CARDIOVASCULAR: No aortic atherosclerotic calcification present. Normal cardiac size. No pulmonary vascular congestion. OSSEOUS STRUCTURES: No significant abnormalities. VISUALIZED UPPER ABDOMEN: Normal. OTHER FINDINGS: None. IMPRESSION: No active disease.
[2018-09-11 15:25] LABS: BASO % 0.5 % (0.0-2.0); EOS # 0.1 K/uL (0.0-0.7); EOS % 1.1 % (0.0-4.0); HEMOGLOBIN 12.8 g/dL (12.0-16.0); LYMPH # 1.2 K/uL (1.0-4.3); LYMPH % 24.6 % (20.0-40.0); MEAN CELL VOLUME 87.9 fl (81.0-99.0); MEAN CORPUSCULAR HEMOGLOBIN 29.5 pg (27.0-31.0); MEAN CORPUSCULAR HGB CONC 33.6 g/dL (33.0-37.0); MEAN PLATELET VOLUME 9.2 fl (7.2-11.7); MONO # 0.5 K/uL (0.0-0.8); MONO % 9.7 % (0.0-10.0); NEUT # 3.2 K/uL (1.8-7.0); NEUT % 64.1 % (50.0-75.0); NRBC % 0.1 % (0.0-0.0); RBC 4.34 Mil/uL (3.80-5.20); RED CELL DISTRIBUTION WIDTH 12.4 % (11.5-14.5)
[2018-09-11 15:36] LABS: BLOOD UREA NITROGEN 15 mg/dl (7-17); CALCIUM 9.1 mg/dL (8.4-10.2); GFR NON-AFRICAN AMERICAN > 60
[2018-09-11 15:40] LABS: INR 1.1; PROTHROMBIN TIME 12.3 Seconds (9.8-13.1)
[2018-09-11 15:42] LABS: PARTIAL THROMBOPLASTIN TIME 37.2 Seconds (25.6-37.1)
[2018-09-11 19:47] VITALS: BP 126/64; PULSE 85; TEMP 97.8
--- NOTE | 2018-09-12 10:52 | US ---
Date of service: 09/11/2018 PROCEDURE: Bilateral lower extremity venous duplex Doppler. HISTORY: Right leg swelling. H/o DVT COMPARISON: Comparison made with prior bilateral lower extremity DVT study 08/08/2018 TECHNIQUE: Bilateral common femoral, superficial femoral, popliteal and posterior tibial veins were evaluated. Flow was assessed with color Doppler, compressibility, assessment of phasic flow and augmentation response. FINDINGS: COMMON FEMORAL VEIN: Right CFV: Unremarkable. Left CFV: Unremarkable. SUPERFICIAL FEMORAL VEIN: Right SFV: Unremarkable. Left SFV: Unremarkable. POPLITEAL VEIN: Right Popliteal: Unremarkable. Left Popliteal: Unremarkable. POSTERIOR TIBIAL VEIN: Right PTV: Unremarkable. Left PTV: Unremarkable. OTHER FINDINGS: None. IMPRESSION: No evidence of deep venous thrombosis.
[2018-09-12 14:44] VITALS: O2SAT 98
--- NOTE | 2018-09-12 16:14 | CARD ---
APPROVED REPORT Date of service: 09/11/2018 EKG Measurement Heart [id number] <Conclusion> Sinus bradycardia with sinus arrhythmia Otherwise normal ECG
== END 2018-09-11 19:48 | disposition home or self-care (01) ==
LOC: H.ER 12:38
DX: I82.220 Acute embolism and thrombosis of inferior vena cava (principal); Z79.01 Long term (current) use of anticoagulants
CPT/HCPCS: 71046; 80048; 81025; 85025; 85610; 85730; 93005; 93970; 96374; 99285; J1885